=== PATIENT | female | born 1980 | race Caucasian/White ===

== ENCOUNTER 2016-10-31 20:10 | Emergency (ER) | payer SELFPAY ==
[~2016-10-31] VITALS: Ht 162.6 cm; Wt 69.4 kg
[2016-10-31 20:20] VITALS: BP 138/90; PULSE 75; RESP 20; TEMP 98.5; O2SAT 98
--- NOTE | 2016-10-31 21:55 | PD ---
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 She denies any ear pain, tinnitus or any head trauma. She denies any headache or fever. She has never had this before. When she moves her head, walks she has problems with the vertigo. She does have frequency of urination without any dysuria or urgency. She denies any flank pain. She has never been diagnosed with diabetes and is not on any medications and has no major medical problems. She states there is no possibility of . She denies any history of viral illness. [facility] Social History Tobacco Use: No Allergies-Medications (Allergen,Severity, Reaction): Coded Allergies: No Known Allergies (Verified Allergy, Severe, 05/15/06) Reported Meds & Prescriptions Reported Meds & Active Scripts Active Meclizine (Meclizine HCl) 25 Mg Tab 25 Mg PO TID PRN Cipro (Ciprofloxacin HCl) 500 Mg Tab 500 Mg PO BID Review of Systems ROS Limitations: Language Barrier Except as stated in HPI: all other systems reviewed are Neg Physical Exam Narrative GENERAL: The patient is alert, oriented 3 in moderate apparent distress with her vertigo. Her vital signs show normal. SKIN: Focused skin assessment warm/dry. HEAD: Atraumatic. Normocephalic. EYES: Pupils equal and round. No scleral icterus. No injection or drainage. ENT: No nasal bleeding or discharge. Mucous membranes pink and moist. The tympanic membranes are clear and the throat is clear. Modified Hallpike maneuver does produce vertigo. NECK: Trachea midline. No JVD. CARDIOVASCULAR: Regular rate and rhythm. No murmur appreciated. RESPIRATORY: No accessory muscle use. Clear to auscultation. Breath sounds equal bilaterally. GASTROINTESTINAL: Abdomen soft, non-tender, nondistended. Hepatic and splenic margins not palpable. MUSCULOSKELETAL: No obvious deformities. No clubbing. No cyanosis. No edema. NEUROLOGICAL: Awake and alert. No obvious cranial nerve deficits. Motor grossly within normal limits. Normal speech. PSYCHIATRIC: Appropriate mood and affect; insight and judgment normal. Data Data Last Documented VS Vital Signs Date Time Temp Pulse Resp B/P Pulse Ox O2 Delivery O2 Flow Rate FiO2 10/31/16 23:04 71 18 129/64 99 Room Air 10/31/16 20:20 98.5 Orders Electrocardiogram (10/31/16 21:50) Beta Hcg (Quant/Titer) (10/31/16 21:50) Complete Blood Count With Diff (10/31/16 21:50) Urinalysis - C+S If Indicated (10/31/16 21:50) Ct Brain W/O Iv Contrast(Rout) (10/31/16 21:50) Ecg Monitoring (10/31/16 21:50) Iv Access Insert/Monitor (10/31/16 21:50) Oximetry (10/31/16 21:50) Sodium Chloride 0.9% Flush (Ns Flush) (10/31/16 22:00) Urine Culture (10/31/16 22:05) Basic Metabolic Panel (Bmp) (10/31/16 22:05) Labs Laboratory Tests Test 10/31/16 22:05 White Blood Count 10.2 TH/MM3 Red Blood Count 4.66 MIL/MM3 Hemoglobin 13.1 GM/DL Hematocrit 41.1 % Mean Corpuscular Volume 88.1 FL Mean Corpuscular Hemoglobin 28.2 PG Mean Corpuscular Hemoglobin 32.0 % Concent Red Cell Distribution Width 14.1 % Platelet Count 359 TH/MM3 Mean Platelet Volume 8.6 FL Neutrophils (%) (Auto) 56.1 % Lymphocytes (%) (Auto) 35.4 % Monocytes (%) (Auto) 7.4 % Eosinophils (%) (Auto) 0.6 % Basophils (%) (Auto) 0.5 % Neutrophils # (Auto) 5.6 TH/MM3 Lymphocytes # (Auto) 3.6 TH/MM3 Monocytes # (Auto) 0.8 TH/MM3 Eosinophils # (Auto) 0.1 TH/MM3 Basophils # (Auto) 0.1 TH/MM3 CBC Comment DIFF FINAL Differential Comment Urine Color YELLOW Urine Turbidity CLOUDY Urine pH 6.0 Urine Specific [place] 1.010 Urine Protein NEG mg/dL Urine Glucose (UA) NEG mg/dL Urine Ketones NEG mg/dL Urine Occult Blood LARGE Urine Nitrite NEG Urine Bilirubin NEG Urine Leukocyte Esterase MOD Urine RBC 100-200 /hpf Urine WBC 9-14 /hpf Urine Squamous Epithelial 6-8 /hpf Cells Urine Bacteria RARE /hpf Microscopic Urinalysis Comment CULTURE INDICATED Sodium Level 138 MEQ/L Potassium Level 3.5 MEQ/L Chloride Level 105 MEQ/L Blood Urea Nitrogen 10 MG/DL Creatinine 0.69 MG/DL Estimat Glomerular Filtration 97 ML/MIN Rate Random Glucose 81 MG/DL Calcium Level 9.1 MG/DL Human Chorionic Gonadotropin, LESS THAN 1 Quant MIU/ML MDM Medical Decision Making Medical Screen Exam Complete: Yes Emergency Medical Condition: Yes Medical Record Reviewed: Yes Interpretation(s) The CT brain is normal. The urine shows cloudy turbidity, large occult blood, moderate leukocyte Estrace with 102 100 red cells and 9-14 white cells and rare bacteria and culture is indicated. The CBC is normal. The beta-hCG is less than 1. EKG shows sinus rhythm rate of 65 and no acute change. The basic metabolic profile is normal. Differential Diagnosis Electrolyte disorder, benign positional vertigo, brain tumorhighly unlikely, hypo-/hyperglycemia, urinary tract infection Narrative Course The patient does have a urinary tract infection. We cannot find any cause for the vertigo with respect to blood or CT scan findings. This will be diagnosed as benign positional vertigo. She is to follow-up with an head packager, this is already lasted for one week. She does not have a viral illness to explain this either. Diagnosis Primary Impression: Benign positional vertigo Additional Impression: UTI (urinary tract infection) Additional Instructions: If the dizziness persists, follow-up with an ear nose and throat physician head packager. Take the meclizine tablet 1 tablet 3 times daily. Also take the urinary antibiotic one tablet twice daily for 10 days. Med/Other Pt SpecificInfo: Prescription(s) given Scripts Meclizine 25 Mg Tab25 Mg PO TID PRN (VERTIGO) #30 TAB Ref 0 Prov:Matias Singh MD 11/01/16 Ciprofloxacin (Cipro)500 Mg [id number] Mg PO BID #20 TAB Ref 0 Prov:Matias Singh MD 11/01/16 Disposition: 01 DISCHARGE HOME Condition: Stable Matias Singh MD Oct 31, 2016 21:55
[2016-10-31] MEDS ORDERED: SODIUM CHLORIDE 0.9% FLUSH 10 ML FLUSH IVF PRN (22:00)
[2016-10-31 22:25] LABS: AUTOMATED NEUTROPHIL # 5.6 TH/MM3 (1.8-7.7); BASOPHIL # 0.1 TH/MM3 (0-0.2); BASOPHIL % 0.5 % (0.0-2.0); EOSINOPHIL # 0.1 TH/MM3 (0-0.4); EOSINOPHIL % 0.6 % (0.0-4.0); HEMATOCRIT 41.1 % (35.0-46.0); HEMO FLAGS DIFF FINAL; LYMPH % 35.4 % (9.0-44.0); LYMPHOCYTE # 3.6 TH/MM3 (1.0-4.8); MEAN CELL VOLUME 88.1 FL (80.0-100.0); MEAN CORPUSCULAR HEMOGLOBIN 28.2 PG (27.0-34.0); MONO % 7.4 % (0.0-8.0); NEUT % 56.1 % (16.0-70.0); PLATELET COUNT 359 TH/MM3 (150-450); RED BLOOD COUNT 4.66 MIL/MM3 (4.00-5.30); RED CELL DISTRIBUTION WIDTH 14.1 % (11.6-17.2); WHITE BLOOD COUNT 10.2 TH/MM3 (4.0-11.0)
[2016-10-31 22:26] LABS: BLOOD, URINE LARGE (NEG); GLUCOSE,URINE NEG (NEG); KETONE, URINE NEG (NEG); NITRITE,URINE NEG (NEG)
[2016-10-31 22:45] LABS: BETA HCG QUANT LESS THAN 1 MIU/ML (0-5)
[2016-10-31 22:46] LABS: URINE COLOR YELLOW (YELLW/STRAW)
[2016-10-31 22:47] LABS: BACTERIA, URINE RARE /hpf; COMMENT (UR) CULTURE INDICATED; CULTURE IF INDICATED CULTURE INDICATED; RBC, URINE 100-200 /hpf (0-3)
[2016-10-31 23:04] VITALS: BP 129/64; PULSE 71; RESP 18; O2SAT 99
--- NOTE | 2016-10-31 23:09 | RADRPT ---
EXAM DATE/TIME: 10/31/2016 22:53 [facility] COMPARISON: No previous studies available for comparison. INDICATIONS : Dizziness. Chills. RADIATION DOSE: 56.61 CTDIvol (mGy) MEDICAL HISTORY : None SURGICAL HISTORY : None. ENCOUNTER: Initial ACUITY: 1 day PAIN SCALE: 0/10 LOCATION: cranial TECHNIQUE: Multiple contiguous axial images were obtained of the head. Using automated exposure control and adj ustment of the mA and/or kV according to patient size, radiation dose was kept as low as reasonably a chievable to obtain optimal diagnostic quality images. DICOM format image data is available electro nically for review and comparison. FINDINGS: CEREBRUM: The ventricles are normal for age. No evidence of midline shift, mass lesion, hemorrhage or acute in farction. No extra-axial fluid collections are seen. POSTERIOR FOSSA: The cerebellum and brainstem are intact. The 4th ventricle is midline. The cerebellopontine angle i s unremarkable. EXTRACRANIAL: The visualized portion of the orbits is intact. SKULL: The calvaria is intact. No evidence of skull fracture. CONCLUSION: Normal examination. Evens Ramos MD on October 31, 2016 at 23:07 Board Certified Radiologist. This report was verified electronically.
[2016-11-01] MEDS ORDERED: CIPR-9 PO (00:25)
[2016-11-01 00:27] LABS: CHLORIDE 105 MEQ/L (98-107); POTASSIUM 3.5 MEQ/L (3.5-5.1); SODIUM (NA) 138 MEQ/L (136-145)
[2016-11-01 00:30] LABS: BLOOD UREA NITROGEN 10 MG/DL (7-18)
[2016-11-01 00:33] LABS: GLOMERULAR FILTRATION RATE 97 ML/MIN (>89)
[2016-11-01] MEDS ORDERED: MECL-62 PO (00:33)
[2016-11-01] MEDS ORDERED: CIPROFLOXACIN 500 MG TAB PO ONE (00:45)
[2016-11-01 00:49] LABS: ANION GAP 7 MEQ/L (5-15); BICARBONATE 25.7 MEQ/L (21.0-32.0)
[2016-11-01 01:06] VITALS: BP 122/62; PULSE 65; RESP 17
--- NOTE | 2016-11-01 08:22 | EKG ---
Date Performed: 10/31/2016 Time Performed: 22:14:58 PTAGE: 35 years EKG: Sinus rhythm POSSIBLE LEFT ATRIAL ENLARGEMENT BORDERLINE ECG NO PREVIOUS TRACING DOCTOR: Santo Kirby Interpretating Date/Time 11/01/2016 08:22:09
== END 2016-11-01 01:22 | disposition home or self-care (01) ==
LOC: PHED 20:10
DX: H81.10 Benign paroxysmal vertigo, unspecified ear (principal); N39.0 Urinary tract infection, site not specified; R94.31 Abnormal electrocardiogram [ECG] [EKG]
CPT/HCPCS: 70450; 80048; 81001; 84702; 85025; 87086; 93005; 99285